=== PATIENT | male | born 1950 | race Caucasian/White ===

== ENCOUNTER 2017-04-21 09:49 | Emergency (ER) | payer OTHER ==
[2017-04-21 10:14] VITALS: BP 143/93; PULSE 68; TEMP 98.2; BMI 23.9
--- NOTE | 2017-04-21 10:47 | PDOC ---
History of Present Illness - General Chief Complaint: Bone Injury Stated Complaint: LEFT SHOULDER PAIN Time Seen by Provider: 04/21/17 10:14 History Source: Patient Exam Limitations: No Limitations - History of Present Illness Initial Comments: 66 yo M presents with L shoulder pain after sustaining an injury while playing softball. He states he was in the outfield, was running for a ball. He collided with another outfielder, hitting his shoulder. He states that he had moderate pain at the time, it has been progressively worsening since then. The injury occurred approximately 9:30am. No LOC, no head injury. He is able to move his left arm but is having pain. He has not taken anything for the pain yet. Past History - Past Medical History Allergies/Adverse Reactions: Allergies Allergy/AdvReac Type Severity Reaction Status Date / Time No Known Allergies Allergy Verified 04/21/17 09:54 Home Medications: Ambulatory Orders NK [No Known Home Medication] 04/21/17 Cancer: Yes (PROSTATE) - Psycho/Social/Smoking Cessation Hx Anxiety: No Suicidal Ideation: No Smoking History: Former smoker Have you smoked in the past 12 months: No If you are a former smoker, when did you quit?: 1989 Information on smoking cessation initiated: No Hx Alcohol Use: No Drug/Substance Use Hx: No Substance Use Type: None Review of Systems - Review of Systems Able to Perform ROS?: Yes Comments:: GENERAL/CONSTITUTIONAL: No fever or chills. No weakness. HEAD, EYES, EARS, NOSE AND THROAT: No change in vision. No ear pain or discharge. No sore throat. MUSCULOSKELETAL: +Left shoulder pain. No neck or back pain. SKIN: No rash NEUROLOGIC: No headache, vertigo, loss of consciousness, or change in strength/ sensation. *Physical Exam - Vital Signs Last Vital Signs Temp Pulse Resp BP Pulse Ox 98.2 F 68 15 143/93 99 04/21/17 09:50 04/21/17 09:50 04/21/17 09:50 04/21/17 09:50 04/21/17 09:50 - Physical Exam Comments: GENERAL: Awake, alert, and fully oriented, in no acute distress HEAD: No signs of trauma EYES: PERRLA, EOMI, sclera anicteric, conjunctiva clear ENT: Auricles normal inspection, hearing grossly normal, nares patent, oropharynx clear without exudates. Moist mucosa NECK: Normal ROM, supple, no lymphadenopathy, JVD, or masses. No spinal tenderness. EXTREMITIES: L shoulder with dec ROM secondary to pain. +Tenderness over the L AC joint. Remainder of extremities with normal range of motion, no edema. No clubbing or cyanosis. No cords, erythema, or tenderness NEUROLOGICAL: Cranial nerves II through XII grossly intact. Normal speech, normal gait SKIN: Warm, Dry, normal turgor, no rashes or lesions noted. Procedures - Splinting Sling: Yes Medical Decision Making - Medical Decision Making 04/21/17 11:17 Results d/w patient. Placed in sling. Ortho f/u, NSAIDs for pain. Percocet for breakthrough pain. *DC/Admit/Observation/Transfer Diagnosis at time of Disposition: Acromioclavicular joint separation Qualifiers: Encounter type: initial encounter Laterality: left Qualified Code(s): S43.102A - Unspecified dislocation of left acromioclavicular joint, initial encounter - Discharge Dispostion Disposition: HOME Condition at time of disposition: Stable Admit: No - Referrals Referrals: Ramos Frazier MD [Staff Physician] - - Patient Instructions Printed Discharge Instructions: DI for AC Joint Separation
[2017-04-21] MEDS ORDERED: IBUPROFEN 600 MG TABLET (FP) PO ONE ×2 (10:49→10:54)
== END 2017-04-21 11:30 | disposition home or self-care (01) ==
LOC: FER 09:49 → SUPCPDRO 09:49 → FER 11:30
DX: S43.102A Unspecified dislocation of left acromioclavicular joint, initial encounter (principal); W50.0XXA Accidental hit or strike by another person, initial encounter; Y93.64 Activity, baseball; Y92.320 Baseball field as the place of occurrence of the external cause; Z87.891 Personal history of nicotine dependence; Z85.46 Personal history of malignant neoplasm of prostate
CPT/HCPCS: 73010-TC; 73030-TC-LT; 99282-25